=== PATIENT | female | born 2000 | race Two or more races ===

== ENCOUNTER 2023-05-03 12:39 | Outpatient (OUT) | payer BC, MEDICAID, SELFPAY ==
--- NOTE | 2023-05-03 12:42 | US_ITS ---
[address] [address] Patient Name: OMAR GRIFFITH MRN: [id number] date: 2000 Sex: F Assigned Patient Location: US Current Patient Location: US Accession/Order Number: [id number] Exam Date: 05/03/2023 12:42 Report Date: 05/03/2023 14:37 At the request of: ABRIL DE SOUZA Procedure: US OB transvaginal EXAMINATION: US OB >= 14 weeks Fetus, US OB transvaginal HISTORY: MISSED MENSES COMPARISON: No relevant comparison available. TECHNIQUE: Transabdominal sonographic examination was performed for obstetrical and evaluation. FINDINGS: Number: 1 Heart Rate: 149.0 bpm Amniotic Fluid Volume: Subjectively normal Placental Location: Posterior Cervix Length: 5 cm , closed BIOMETRY: BPD: 3.8 cm 17 weeks 5 days HC: 14.2 cm 17 weeks 4 days AC: 12.2 cm 17 weeks 6 days FL: 2.3 cm 17 weeks 0 days EFW:195.3 grams; , 7 ounces FL/AC: 19.0 FL/BPD: 60.4 HC/AC: 1.2 GESTATIONAL AGE: Age by EDC: Unknown Age by current US: 17 weeks 4 days YESSY by current US: 10/07/2023 US/US OB transvaginal IMPRESSION: Viable mercado intrauterine gestation measuring 17 weeks 4 days Closed cervix measuring 5 cm in length *Reference: AIUM Practice Guideline for the performance of Obstetric Ultrasound Examinations, January 28, 2007. Electronically authenticated by: CHRISTINE HENRIQUEZ Date: 05/03/2023 14:37
--- NOTE | 2023-05-03 13:15 | US_ITS ---
[address] [address] Patient Name: OMAR GRIFFITH MRN: [id number] date: 2000 Sex: F Assigned Patient Location: US Current Patient Location: US Accession/Order Number: [id number] Exam Date: 05/03/2023 13:00 Report Date: 05/03/2023 14:37 At the request of: ABRIL DE SOUZA Procedure: US OB >= 14 weeks Fetus EXAMINATION: US OB >= 14 weeks Fetus, US OB transvaginal HISTORY: MISSED MENSES COMPARISON: No relevant comparison available. TECHNIQUE: Transabdominal sonographic examination was performed for obstetrical and evaluation. FINDINGS: Number: 1 Heart Rate: 149.0 bpm Amniotic Fluid Volume: Subjectively normal Placental Location: Posterior Cervix Length: 5 cm , closed BIOMETRY: BPD: 3.8 cm 17 weeks 5 days HC: 14.2 cm 17 weeks 4 days AC: 12.2 cm 17 weeks 6 days FL: 2.3 cm 17 weeks 0 days EFW:195.3 grams; , 7 ounces FL/AC: 19.0 FL/BPD: 60.4 HC/AC: 1.2 GESTATIONAL AGE: Age by EDC: Unknown Age by current US: 17 weeks 4 days YESSY by current US: 10/07/2023 US/US OB >= 14 weeks Fetus IMPRESSION: Viable mercaod intrauterine gestation measuring 17 weeks 4 days Closed cervix measuring 5 cm in length *Reference: AIUM Practice Guideline for the performance of Obstetric Ultrasound Examinations, January 28, 2007. Electronically authenticated by: CHRISTINE HENRIQUEZ Date: 05/03/2023 14:37
== END 2023-05-03 12:40 | disposition home or self-care (01) ==
PROVIDERS: PCP Family Medicine; Visit Provider Obstetrics & Gynecology
DX: Z34.92 Encounter for supervision of normal pregnancy, unspecified, second trimester (principal); Z3A.17 17 weeks gestation of pregnancy; N92.6 Irregular menstruation, unspecified
CPT/HCPCS: 76815; 76817

== ENCOUNTER 2023-05-15 09:42 | Outpatient (OUT) | payer BC, MEDICAID, SELFPAY ==
--- OUTSIDE RECORDS SUMMARY | 2023-05-15 09:52 | XMS_ITS | CCD ---
Author Name Unknown Address [facility] [address] [place] [address] Organization [facility] Encounters Encounter Date Encounter Type Care Provider Facility Start: 05-03-2023 End: 05-03-2023 ambulatory Not Available Payers Date Payer Category Payer Unknown [id number] 2023 Medicaid [id number] 2000 Unknown [id number] Summary Purpose Family History No Family History Records Found Advance Directives No Advanced Directives Records Found Additional Source Comments INFORMATION SOURCE (unrecogn ized section and content) DATE CREATED AUTHOR 05/04/2023 [facility] dical Specialists EPIC FOR RECORDS PERTAINING TO PATIENTS WHO ARE OR HAVE BEEN ENROLLED IN A CHEMICAL DEPENDENCY/SUBSTANCEABUSE PROGRAM, SOME INFORMATION MAY BE OMITTED. This clinical summary was aggregated from multiple sources. Caution should be exercised in using it in the provision of clinical care. This summary normalizes information from multiple sources, and as a consequence, information in this document may materially change the coding, format and clinical context of patient data. In addition, data may be omitted in some cases. CLINICAL DECISIONS SHOULD BE BASED ON THE PRIMARY CLINICAL RECORDS. [facility]. provides no warranty or guarantee of the accuracy or completeness of information in this document.
[2023-05-15 10:41] LABS: Basophils Percent Auto 0.1 % (0.2-2.0); Eosinophils Percent Auto 0.3 % (0.9-7.0); Hematocrit 32.3 % (36.0-48.0); Hemoglobin 11.4 g/dL (12.0-16.0); Immature Granulocytes Abs Auto 0.04 10^3/uL (0.00-0.03); Immature Granulocytes Pct Auto 0.4 % (0.0-0.5); Lymphocytes Absolute Auto 1.5 10^3/uL (1.2-3.8); Lymphocytes Percent Auto 13.9 % (20.5-60.0); Mean Corpuscular HGB Conc 35.3 g/dL (29.9-35.2); Mean Corpuscular Hemoglobin 34.8 pg (26.7-34.0); Mean Corpuscular Volume 98.5 fL (81.0-99.0); Mean Platelet Volume 9.4 fL (9.5-13.5); Monocytes Absolute Auto 0.8 10^3/uL (0.3-0.8); Monocytes Percent Auto 7.8 % (1.7-12.0); Neutrophils Absolute Auto 8.2 10^3/uL (1.4-6.5); Neutrophils Percent Auto 77.5 % (43.0-75.0); Platelet Count 219 10^3/uL (150-450); Red Blood Count 3.28 10^6/uL (4.20-5.40); Red Cell Distribution Width 12.3 % (11.0-15.0); White Blood Count 10.6 10^3/uL (4.0-11.0)
[2023-05-15 11:19] LABS: Estimated Average Glucose 88 mg/dL; Glycohemoglobin A1C 4.7 % (4.5-6.2)
[2023-05-15 11:36] LABS: Thyroid Stimulating Hormone 2.462 uIU/mL (0.358-3.740)
[2023-05-16 06:10] LABS: HBsAg Screen Negative (Negative); HCV Ab Non Reactive (Non Reactive); HIV Ab/p24 Ag Screen Non Reactive (Non Reactive); Rapid Plasma Reagin, Quant Non Reactive titer (NonRea<1:1)
[2023-05-16 08:10] LABS: Rubella Antibodies, IgG 5.06 index (Immune >0.99)
[2023-05-17 01:07] LABS: AFP Value 58.4 ng/mL (.); Gest. Age on Collection Date 16.3 weeks (.); Gestat. Age Based On Ultrasound (.); Insulin Dep Diabetes No (.); OSBR Risk 1 IN 2965 (.); Results Report (.)
== END 2023-05-15 09:43 | disposition home or self-care (01) ==
PROVIDERS: PCP Family Medicine; Visit Provider Obstetrics & Gynecology
DX: Z34.92 Encounter for supervision of normal pregnancy, unspecified, second trimester (principal); N92.6 Irregular menstruation, unspecified; Z36.0 Encounter for antenatal screening for chromosomal anomalies
CPT/HCPCS: 36415; 82105; 83036; 84443; 85025; 86592; 86762; 86803; 86850; 86900; 86901; 87086; 87340; 87389

== ENCOUNTER 2023-05-28 10:03 | Outpatient (OUT) | payer BC, MEDICAID, SELFPAY ==
--- OUTSIDE RECORDS SUMMARY | 2023-05-28 10:08 | XMS_ITS | CCD ---
Author Name Unknown Address [facility] [address] [place] [address] Organization [facility] Encounters Encounter Date Encounter Type Care Provider Facility Start: 05-03-2023 End: 05-03-2023 ambulatory Not Available Payers Date Payer Category Payer Unknown [id number] 2023 Medicaid [id number] 2000 Unknown [id number] Summary Purpose Family History No Family History Records Found Advance Directives No Advanced Directives Records Found Additional Source Comments INFORMATION SOURCE (unrecogn ized section and content) DATE CREATED AUTHOR 05/04/2023 [facility] dical Specialists EPIC FOR RECORDS PERTAINING TO [...] BE BASED ON THE PRIMARY CLINICAL RECORDS. [employer]. provides no warranty or guarantee of the accuracy or completeness of information in this document.
--- NOTE | 2023-05-28 10:09 | US_ITS ---
[address] [address] Patient Name: OMAR GRIFFITH MRN: [id number] date: 2000 Sex: F Assigned Patient Location: [facility] Current Patient Location: [facility] Accession/Order Number: [id number] Exam Date: 05/28/2023 10:10 Report Date: 05/28/2023 11:48 At the request of: ABRIL DE SOUZA Procedure: US OB anatomy EXAMINATION: US OB anatomy, US OB cervical length HISTORY: ANATOMY COMPARISON: No relevant comparison available. TECHNIQUE: Transabdominal sonographic examination was performed for obstetrical and evaluation. FINDINGS: Number: 1 Heart Rate: 147.0 bpm H.B. /min Amniotic Fluid Volume: Subjectively normal Placental Location: Breech presentation, longitudinal lie Cervix Length: 4.7cm , closed Normal anatomy: Lateral ventricles, cerebellum, posterior fossa, nose, lips, orbits, four-chamber heart, RVOT, LVOT, diaphragm, stomach, kidneys, abdominal cord insertion, bladder, umbilical arteries, three-vessel cord, spine, extremities BIOMETRY: BPD: 4.6 cm 19 weeks 6 days , 8% HC: 17.9 cm 20 weeks 3 days, 12% AC: 15.2 cm 20 weeks 3 days, 21% FL: 3.4 cm 20 weeks 3 days , 20% EFW:353.1 grams; 12 ounces, 14% FL/AC: 22.0 FL/BPD: 73.1 HC/AC: 1.2 GESTATIONAL AGE: Age by EDC: 21 weeks 1 days Age by current US: 20 weeks 2 days YESSY by current US: 10/13/2023 YESSY by EDC: 10/07/2023 US/US OB anatomy IMPRESSION: Normal anatomy scan Closed cervix measuring 4.7 cm in length *Reference: AIUM Practice Guideline for the performance of Obstetric Ultrasound Examinations, January 28, 2007. Electronically authenticated by: CHRISTINE HENRIQUEZ Date: 05/28/2023 11:48
--- NOTE | 2023-05-28 10:09 | US_ITS ---
[address] [address] Patient Name: OMAR GRIFFITH MRN: [id number] date: 2000 Sex: F Assigned Patient Location: [facility] Current Patient Location: [facility] Accession/Order Number: [id number] Exam Date: 05/28/2023 10:10 Report Date: 05/28/2023 11:48 At the request of: ABRIL DE SOUZA Procedure: US OB cervical length EXAMINATION: US OB anatomy, US OB cervical length HISTORY: ANATOMY COMPARISON: No relevant comparison available. TECHNIQUE: Transabdominal sonographic examination was performed for obstetrical and evaluation. FINDINGS: Number: 1 Heart Rate: 147.0 bpm H.B. /min Amniotic Fluid Volume: Subjectively normal Placental Location: Breech presentation, longitudinal lie Cervix Length: 4.7cm , closed Normal anatomy: Lateral ventricles, cerebellum, posterior fossa, nose, lips, orbits, four-chamber heart, RVOT, LVOT, diaphragm, stomach, kidneys, abdominal cord insertion, bladder, umbilical arteries, three-vessel cord, spine, extremities BIOMETRY: BPD: 4.6 cm 19 weeks 6 days , 8% HC: 17.9 cm 20 weeks 3 days, 12% AC: 15.2 cm 20 weeks 3 days, 21% FL: 3.4 cm 20 weeks 3 days , 20% EFW:353.1 grams; 12 ounces, 14% FL/AC: 22.0 FL/BPD: 73.1 HC/AC: 1.2 GESTATIONAL AGE: Age by EDC: 21 weeks 1 days Age by current US: 20 weeks 2 days YESSY by current US: 10/13/2023 YESSY by EDC: 10/07/2023 US/US OB cervical length IMPRESSION: Normal anatomy scan Closed cervix measuring 4.7 cm in length *Reference: AIUM Practice Guideline for the performance of Obstetric Ultrasound Examinations, January 28, 2007. Electronically authenticated by: CHRISTINE HENRIQUEZ Date: 05/28/2023 11:48
== END 2023-05-28 10:04 | disposition home or self-care (01) ==
LOC: NOMS 10:05
PROVIDERS: PCP Family Medicine; Visit Provider Obstetrics & Gynecology
DX: Z01.419 Encounter for gynecological examination (general) (routine) without abnormal findings (principal); Z36.89 Encounter for other specified antenatal screening; Z3A.21 21 weeks gestation of pregnancy
CPT/HCPCS: 76805; 76817; G0145

== ENCOUNTER 2023-05-28 21:25 | Outpatient (REF) | payer BC, MEDICAID, SELFPAY ==
--- OUTSIDE RECORDS SUMMARY | 2023-05-28 21:28 | XMS_ITS | CCD ---
Author Name Unknown Address [facility] [address] [place] [address] Organization [facility] Care Team Providers Care Airset Molder Name Role Phone ABRIL DE SOUZA Attending Unavailable Encounters Encounter Date Encounter Type Care Provider Facility Start: 05-28-2023 End: 05-28-2023 ambulatory ABRIL AP Not Available Start: 05-03-2023 End: 05-03-2023 ambulatory ABRIL AP Not Available Payers Date Payer Category Payer Unknown [id number] 2023 Medicaid [id number] 2001 Unknown [id number] 2.16.84 [id number] 2001 Unknown [id number] Summary Purpose Family History No Family History Records Found Advance Directives No Advanced Directives Records Found Additional Source Comments INFORMATION SOURCE (unrecogn ized section and content) DATE CREATED AUTHOR 05/28/2023 [facility] Specialists EPIC FOR RECORDS PERTAINING TO PATIENTS [...] BE BASED ON THE PRIMARY CLINICAL RECORDS. [facility] [employer] provides no warranty or guarantee of the accuracy or completeness of information in this document.
[2023-05-31 15:09] LABS: Age Gdln ACOG Testing Note (.); IGP, rfx Aptima HPV ASCU Note (.)
== END 2023-05-28 21:26 | disposition home or self-care (01) ==
LOC: LAB 21:25
PROVIDERS: PCP Family Medicine; Visit Provider Obstetrics & Gynecology
DX: Z01.419 Encounter for gynecological examination (general) (routine) without abnormal findings (principal)
CPT/HCPCS: G0145

== ENCOUNTER 2023-06-18 11:38 | Outpatient (OUT) | payer BC, MEDICAID, SELFPAY ==
--- OUTSIDE RECORDS SUMMARY | 2023-06-18 11:42 | XMS_ITS | CCD ---
Author Name Unknown Address [facility] [address] [place] [address] Organization [facility] Care Team Providers Care River Transportation Worker Name Role Phone ARBIL DE SOUZA Attending Unavailable Encounters Encounter Date Encounter Type Care Provider Facility Start: 05-28-2023 End: 05-28-2023 ambulatory ABRIL AP Not Available Start: 05-03-2023 End: 05-03-2023 ambulatory ABRIL AP Not Available Payers Date Payer Category Payer Unknown [id number] 2023 Medicaid [id number] 2001 Unknown [id number] 2.16.84 [id number] 2001 Unknown [id number] Summary Purpose Family History No Family History Records Found Advance Directives No Advanced Directives Records Found Additional Source Comments INFORMATION SOURCE (unrecogn ized section and content) DATE CREATED AUTHOR 05/28/2023 [facility] Specialists EPIC FOR RECORDS PERTAINING TO PATIENTS [...] BE BASED ON THE PRIMARY CLINICAL RECORDS. [facility] [employer] provides no warranty or guarantee of the accuracy or completeness of information in this document.
[2023-06-18 13:16] LABS: Basophils Percent Auto 0.2 % (0.2-2.0); Eosinophils Percent Auto 0.3 % (0.9-7.0); Hematocrit 35.1 % (36.0-48.0); Hemoglobin 11.7 g/dL (12.0-16.0); Immature Granulocytes Abs Auto 0.06 10^3/uL (0.00-0.03); Immature Granulocytes Pct Auto 0.6 % (0.0-0.5); Lymphocytes Percent Auto 20.7 % (20.5-60.0); Mean Corpuscular HGB Conc 33.3 g/dL (29.9-35.2); Mean Corpuscular Hemoglobin 33.9 pg (26.7-34.0); Mean Corpuscular Volume 101.7 fL (81.0-99.0); Mean Platelet Volume 9.4 fL (9.5-13.5); Monocytes Absolute Auto 0.5 10^3/uL (0.3-0.8); Neutrophils Absolute Auto 7.2 10^3/uL (1.4-6.5); Neutrophils Percent Auto 73.2 % (43.0-75.0); Platelet Count 238 10^3/uL (150-450); Red Blood Count 3.45 10^6/uL (4.20-5.40); Red Cell Distribution Width 12.8 % (11.0-15.0); White Blood Count 9.8 10^3/uL (4.0-11.0)
[2023-06-18 13:31] LABS: Glucose 1 Hour 153 mg/dL (<130)
== END 2023-06-18 11:39 | disposition home or self-care (01) ==
LOC: LAB 11:40
PROVIDERS: PCP Family Medicine; Visit Provider Obstetrics & Gynecology
DX: Z13.1 Encounter for screening for diabetes mellitus (principal)
CPT/HCPCS: 36415; 82950; 85025

== ENCOUNTER 2023-06-29 12:18 | Outpatient (OUT) | payer BC, MEDICAID, SELFPAY ==
--- OUTSIDE RECORDS SUMMARY | 2023-06-29 12:22 | XMS_ITS | CCD ---
Author Name Unknown Address [facility] [address] [place] [address] Organization [facility] Care Team Providers Care Fiberglass Technician Name Role Phone ABRIL DE SOUZA Attending Unavailable Encounters Encounter Date Encounter Type Care Provider Facility Start: 05-28-2023 End: 05-28-2023 ambulatory ABRIL AP Not Available Start: 05-03-2023 End: 05-03-2023 ambulatory ABRIL AP Not Available Payers Date Payer Category Payer Unknown [id number] 2023 Medicaid [id number] 2001 Unknown [id number] 2.16.84 [id number] 2001 Unknown [id number] Summary Purpose Family History No Family History Records Found Advance Directives No Advanced Directives Records Found Additional Source Comments INFORMATION SOURCE (unrecogn ized section and content) DATE CREATED AUTHOR 05/28/2023 [facility] Specialists EPIC FOR RECORDS PERTAINING TO [...] BE BASED ON THE PRIMARY CLINICAL RECORDS. [facility] [employer] provides no warranty or guarantee of the accuracy or completeness of information in this document.
[2023-06-29 13:28] LABS: Glucose Fasting 71 mg/dL (<95)
[2023-06-29 13:49] LABS: Glucose 1 Hour 160 mg/dL (<180)
[2023-06-29 15:04] LABS: Glucose 2 Hour 142 mg/dL (<155)
[2023-06-29 16:07] LABS: Glucose 3 Hour 122 mg/dL (<140)
== END 2023-06-29 12:19 | disposition home or self-care (01) ==
LOC: LAB 12:18
PROVIDERS: PCP Family Medicine; Visit Provider Obstetrics & Gynecology
DX: R73.09 Other abnormal glucose (principal)
CPT/HCPCS: 36415; 82951; 82952

== ENCOUNTER 2023-08-14 00:21 | Observation (INO) | payer BC, OTHER, SELFPAY ==
--- OUTSIDE RECORDS SUMMARY | 2023-08-14 00:26 | XMS_ITS | CCD ---
Author Organization [facility] Care Team Providers Care Integrated Program Teacher Name Role Phone AP, ABRIL Attending Unavailable AP, ABRIL Attending Unavailable LIDIA, LEONIDES Attending Unavailable LIDIA, LEONIDES Attending Unavailable Encounters Encounter Date Encounter Type Care Provider Facility Start: 08-02-2023 End: 08-02-2023 ambulatory LEONIDES STACKEY Not Available Start: 07-17-2023 End: 07-17-2023 ambulatory LEONIDES LIDIA Not Available Start: 06-25-2023 End: 06-25-2023 ambulatory ABRIL AP Not Available Start: 05-28-2023 End: 05-28-2023 ambulatory ABRIL AP Not Available Start: 05-03-2023 End: 05-03-2023 ambulatory ABRIL AP Not Available Payers Date Payer Category Payer Unknown [id number] 2022 Unknown [id number] 2001 Unknown [id number] 2.16.84 [id number] 2001 Unknown [id number] 2.16.84 [id number] 2001 Unknown [id number] 2.16.84 [id number] 2001 Unknown [id number] 2.16.84 [id number] 2001 Unknown [id number] [id number] Summary Purpose Family History No Family History Records Found Advance Directives No Advanced Directives Records Found Additional Source Comments INFORMATION SOURCE (unrecogn ized section and content) DATE CREATED AUTHOR 08/03/2023 [facility] Special[facility] EPIC FOR RECORDS PERTAINING TO [...] BE BASED ON THE PRIMARY CLINICAL RECORDS. [facility]. provides no warranty or guarantee of the accuracy or completeness of information in this document.
[2023-08-14 00:42] VITALS: BP 105/67; PULSE 85
[2023-08-14 00:43] VITALS: TEMP 30.2; TEMP 30.6; TEMP 35.9
[2023-08-14 00:46] LABS: Bilirubin Urine NEGATIVE (NEGATIVE); Blood Urine LARGE (NEGATIVE); Clarity Urine CLEAR (CLEAR); Color Urine YELLOW (YELLOW); Glucose Urine UA NEGATIVE (NEGATIVE); Ketones Urine 15 mg/dL (NEGATIVE); Leukocyte Esterase Urine TRACE (NEGATIVE); Nitrite Urine NEGATIVE (NEGATIVE); Protein Urine TRACE mg/dL (NEG/TRACE); Specific Gravity Urine >=1.030 (1.005-1.025); Urobilinogen Urine 0.2 EU/dL (0.2-1.0)
[2023-08-14 00:47] LABS: Urine Microscopic Indicated YES
[2023-08-14 00:57] LABS: RBC Urine 20-50 #/HPF (0-2); WBC Urine 0-2 #/HPF (NONE SEEN)
[2023-08-14 00:58] LABS: Bacteria Urine MODERATE #/HPF (NONE SEEN); Cast Seen? NONE SEEN #/LPF (NONE SEEN); Crystals Seen? None Seen #/HPF (None Seen); Mucus Urine MODERATE (NONE SEEN); Squamous Epithelial Cell Urine FEW #/LPF (NONE/RARE); Urine Culture Indicated YES
[2023-08-14 01:45] VITALS: TEMP 36.7
[2023-08-14] MEDS: ACETAMINOPHEN 500 MG TABLET 1000 MG PO (02:15)
[2023-08-14] MEDS: 0.9 % SODIUM CHLORIDE 500 ML 1000 ML IV (02:32)
[2023-08-14] MEDS: CEFAZOLIN SODIUM/DEXTROSE,ISO 2 GM/50 ML PIGGYBACK IV (02:37)
--- NOTE | 2023-08-14 04:31 | PC.NURSE ---
IV 22G left forearm.
[2023-08-14 06:27] VITALS: BP 96/59; PULSE 93; TEMP 36.6
--- NOTE | 2023-08-14 07:00 | US_ITS ---
[address] [address] Patient Name: OMAR GRIFFITH MRN: [id number] date: 2000 Sex: F Assigned Patient Location: [facility] Current Patient Location: [facility] Accession/Order Number: [id number] Exam Date: 08/14/2023 07:25 Report Date: 08/14/2023 07:58 At the request of: ABRIL DE SOUZA Procedure: US OB placenta EXAMINATION: US OB cervical length, US OB placenta HISTORY: Vaginal Bleeding COMPARISON: 05/28/2023 FINDINGS: position: Cephalic presentation, longitudinal lie Amniotic fluid volume: Subjectively normal Placenta: Posterior fundal, grade 1. No intraplacental or retroplacental echogenic abnormality. Placental edge to internal os is not seen on the images Heart rate: 130 beats minute Cervix: 4.3 cm, closed US/US OB placenta IMPRESSION: Normal placenta Closed cervix measuring 4.3 cm in length Electronically authenticated by: CHRISTINE HENRIQUEZ Date: 08/14/2023 07:58
--- NOTE | 2023-08-14 07:00 | US_ITS ---
[address] [address] Patient Name: OMAR GRIFFITH MRN: [id number] date: 2000 Sex: F Assigned Patient Location: [facility] Current Patient Location: [facility] Accession/Order Number: [id number] Exam Date: 08/14/2023 07:25 Report Date: 08/14/2023 07:58 At the request of: ABRIL DE SOUZA Procedure: US OB cervical length EXAMINATION: US OB cervical length, US OB placenta HISTORY: Vaginal Bleeding COMPARISON: 05/28/2023 FINDINGS: position: Cephalic presentation, longitudinal lie Amniotic fluid volume: Subjectively normal Placenta: Posterior fundal, grade 1. No intraplacental or retroplacental echogenic abnormality. Placental edge to internal os is not seen on the images Heart rate: 130 beats minute Cervix: 4.3 cm, closed US/US OB cervical length IMPRESSION: Normal placenta Closed cervix measuring 4.3 cm in length Electronically authenticated by: CHRISTINE HENRIQUEZ Date: 08/14/2023 07:58
--- NOTE | 2023-08-14 07:33 | W.PC.ACHO ---
Registration Status: ADM JALEN Primary Language: Preferred Language: Report given Beatris BRIDGES at 0715. Active Medications Generic Name Dose Route Start Last Admin Trade Name Freq PRN Reason Stop Dose Admin Acetaminophen 1,000 mg 08/14/23 01:06 08/14/23 02:15 Acetaminophen 500 Mg Tablet PO 1,000 mg Q4H PRN Administration Pain Sodium Chloride 1,000 mls @ 125 mls/hr 08/14/23 01:30 Sodium Chloride 0.9% 1,000 Ml IV .Q8H MARIE Cefazolin Sodium/Dextrose 1 gm in 50 mls @ 100 mls/hr 08/14/23 09:15 Ancef IV Q8H MARIE IV Insertion/Site Date of IV Line Insertion [ 08/14/23 Short PIV (<1.75 in) 22g left Hand] Date of IV Line Insertion [ 08/14/23 Short PIV (<1.75 in) 20g left Antecubital] IV Insertion Time [Short PIV ( 03:20 <1.75 in) 22g left Hand] IV Insertion Time [Short PIV ( 02:30 <1.75 in) 20g left Antecubital ]
== END 2023-08-14 08:30 | disposition home or self-care (01) ==
PROVIDERS: Admitting Provider Obstetrics & Gynecology; PCP Family Medicine; Visit Provider Obstetrics & Gynecology
DX: O46.93 Antepartum hemorrhage, unspecified, third trimester (principal); Z3A.32 32 weeks gestation of pregnancy
CPT/HCPCS: 59025; 76815; 76817; 81001; 87086; 96365; G0378; G0379

== ENCOUNTER 2023-08-30 09:58 | Outpatient (OUT) | payer BC, MEDICAID, OTHER, SELFPAY ==
--- NOTE | 2023-08-30 10:05 | US_ITS ---
[address] [address] Patient Name: OMAR GRIFFITH MRN: [id number] date: 2000 Sex: F Assigned Patient Location: [facility] Current Patient Location: [facility] Accession/Order Number: [id number] Exam Date: 08/30/2023 10:05 Report Date: 08/30/2023 10:55 At the request of: ABRIL DE SOUZA Procedure: US OB growth EXAMINATION: US OB growth HISTORY: SIZE INCONSISTENT WITH DATES COMPARISON: No relevant comparison available. FINDINGS: Heart Rate: 174.0 bpm Amniotic Fluid Volume: 13.0 cm Number: 1.0 Position: Cephalic presentation, longitudinal lie Maximum Vertical Pocket: 5.0 cm cm 1.9 cm cm 4.9 cm cm 1.2 cm cm BIOMETRY: BPD: 8.7 cm cm; 35 weeks 1 days; 65% HC: 31.5 cmcm; 35 weeks 2 days , 33% AC: 31.6 cm cm; 35 weeks 4 days, 81% FL: 6.4 cm cm; 33 weeks 0 days; 9.2 % % EFW: 2520.5 grams, 5 lbs. 9 oz., 52% FL/AC: 20.2 FL/BPD: 73.5 HC/AC: 1.0 GESTATIONAL AGE: Age by EDC: 34 weeks 4 days YESSY by EDC: 10/07/2023 Age by US: 34 weeks 5 days YESSY by US: 10/06/2023 US/US OB growth IMPRESSION: Normal interval growth Electronically authenticated by: CHRISTINE HENRIQUEZ Date: 08/30/2023 10:55
== END 2023-08-30 09:59 | disposition home or self-care (01) ==
PROVIDERS: PCP Family Medicine; Visit Provider Obstetrics & Gynecology
DX: O26.843 Uterine size-date discrepancy, third trimester (principal); Z3A.34 34 weeks gestation of pregnancy
CPT/HCPCS: 76816

== ENCOUNTER 2023-09-13 19:21 | Outpatient (REF) | payer MEDICAID, SELFPAY ==
--- OUTSIDE RECORDS SUMMARY | 2023-09-13 19:41 | XMS_ITS | CCD ---
Author Organization [facility] Care Team Providers Care Insurance Verification Clerk Name Role Phone AP, ABRIL Attending Unavailable AP, ABRIL Attending Unavailable LIDIA, LEONIDES Attending Unavailable LIDIA, LEONIDES Attending Unavailable AP, ABRIL Attending Unavailable LIDIA, LEONIDES Attending Unavailable AP, ABRIL Attending Unavailable Encounters Encounter Date Encounter Type Care Provider Facility Start: 09-06-2023 End: 09-06-2023 ambulatory ABRIL AP Not Available Start: 08-30-2023 End: 08-30-2023 ambulatory LEONIDES LDIIA Not Available Start: 08-16-2023 End: 08-16-2023 ambulatory ABRIL AP Not Available Start: 08-02-2023 End: 08-02-2023 ambulatory LEONIDES LIDIA Not Available Start: 07-17-2023 End: 07-17-2023 ambulatory LEONIDES LIDIA Not Available Start: 06-25-2023 End: 06-25-2023 ambulatory ABRIL AP Not Available Start: 05-28-2023 End: 05-28-2023 ambulatory ABRIL AP Not Available Start: 05-03-2023 End: 05-03-2023 ambulatory ABRIL AP Not Available Payers Date Payer Category Payer Unknown [id number] 2022 Medicaid [id number] 2001 Unknown [id number] 2.16.84 [id number] 2001 Unknown [id number] 2.16.84 [id number] 2001 Unknown [id number] 2.16.84 [id number] 2001 Unknown [id number] 2.16.84 [id number] 2001 Unknown [id number] 2.16.84 [id number] 2001 Unknown [id number] 2.16.84 0.1.607531.3.579.2.1259 2001 Unknown [id number] 2.16.84 [id number] 2001 Unknown [id number] 2.16.840 .[id number] Summary Purpose Family History No Family History Records Found Advance Directives No Advanced Directives Records Found Additional Source Comments INFORMATION SOURCE (unrecogn ized section and content) DATE CREATED AUTHOR 09/08/2023 [facility] Specialists EPIC FOR RECORDS PERTAINING [...] BE BASED ON THE PRIMARY CLINICAL RECORDS. [facility] [employer] [facility]. provides no warranty or guarantee of the accuracy or completeness of information in this document.
== END 2023-09-13 19:22 | disposition home or self-care (01) ==
LOC: LAB 19:21
PROVIDERS: PCP Family Medicine; Visit Provider Obstetrics & Gynecology
DX: Z34.93 Encounter for supervision of normal pregnancy, unspecified, third trimester (principal)
CPT/HCPCS: 87081

== ENCOUNTER 2023-09-26 14:10 | Outpatient (OUT) | payer MEDICAID, SELFPAY ==
--- NOTE | 2023-09-26 14:12 | US_ITS ---
The [address] [address] Patient Name: OMAR GRIFFITH MRN: [id number] date: 2000 Sex: F Assigned [facility] Accession/Order Number: [id number] Exam Date: 09/26/2023 14:13 Report Date: 09/26/2023 14:51 At the request of: LEONIDES MURILLO Procedure: US OB growth EXAMINATION: US OB growth HISTORY: SIZE INCONSISTENT WITH DATES COMPARISON: No relevant comparison available. FINDINGS: Heart Rate: 146.0 bpm Amniotic Fluid Volume: 19.5 cm Number: 1.0 Position: Cephalic presentation, longitudinal lie Maximum Vertical Pocket: 1.8 cm cm 5.5 cm cm 5.3 cm cm 6.9 cm cm BIOMETRY: BPD: 9.3 cm cm; 38 weeks 0 days; 65% HC: 33.6 cmcm; 38 weeks 4 days , 35% AC: 35.8 cm cm; 39 weeks 5 days, 93% FL: 7.3 cm cm; 37 weeks 1 days; 23.4 % % EFW: 3604.4 grams, 7 lbs. 15 oz., 75% FL/AC: 20.3 FL/BPD: 77.8 HC/AC: 0.9 GESTATIONAL AGE: Age by EDC: 38 weeks 3 days YESSY by EDC: 10/07/2023 Age by US: 38 weeks 3 days YESSY by US: 10/07/2023 US/US OB growth IMPRESSION: Normal interval growth. Electronically authenticated by: CHRISTINE HENRIQUEZ Date: 09/26/2023 14:51
--- OUTSIDE RECORDS SUMMARY | 2023-09-26 14:23 | XMS_ITS | CCD ---
Author Organization [facility] Care Team Providers Care Packaging Line Attendant Name Role Phone AP, ABRIL Attending Unavailable AP, ABRIL Attending Unavailable LIDIA, LEONIDES Attending Unavailable LIDIA, LEONIDES Attending Unavailable AP, ABRIL Attending Unavailable LIDIA, LEONIDES Attending Unavailable AP, ABRIL Attending Unavailable AP, ABRIL Attending Unavailable LIDIA, LEONIDES Attending Unavailable Encounters Encounter Date Encounter Type Care Provider Facility Start: 09-20-2023 End: 09-20-2023 ambulatory LEONIDES LIDIA Not Available Start: 09-13-2023 End: 09-13-2023 ambulatory ABRIL AP Not Available Start: 09-06-2023 End: 09-06-2023 ambulatory ABRIL AP Not Available Start: 08-30-2023 End: 08-30-2023 ambulatory LEONIDES LIDIA Not Available Start: 08-16-2023 End: 08-16-2023 ambulatory ABRIL AP Not Available Start: 08-02-2023 End: 08-02-2023 ambulatory LEONIDES LIDIA Not Available Start: 07-17-2023 End: 07-17-2023 ambulatory LEONIDES LIDIA Not Available Start: 06-25-2023 End: 06-25-2023 ambulatory ABRIL AP Not Available Start: 05-28-2023 End: 05-28-2023 ambulatory ABRIL AP Not Available Start: 05-03-2023 End: 05-03-2023 ambulatory ABRIL AP Not Available Payers Date Payer Category Payer Unknown [id number] 2022 Medicaid [id number] 2001 Unknown [id number] 2.16.84 0.1.237120.3.579.2.9 2001 Unknown [id number] 2.16.84 0.1.060294.3.579.2.1258 2001 Unknown [id number] 2.16.84 0.1.143991.3.579.2.1258 2001 Unknown [id number] 2.16.84 0.1.636994.3.579.2.1258 2001 Unknown [id number] 2.16.84 0.1.738706.3.579.2.1258 2001 Unknown [id number] 2.16.84 0.1.691243.3.579.2.1258 2001 Unknown [id number] 2.16.84 0.1.749611.3.579.2.1258 2001 Unknown [id number] 2.16.84 0.1.062623.3.579.2.1258 2001 Unknown [id number] 2.16.84 0.1.762178.3.579.2.1258 2001 Unknown [id number] 2.16.840 .[id number] Summary Purpose Family History No Family History Records Found Advance Directives No Advanced Directives Records Found Additional Source Comments INFORMATION SOURCE (unrecogn ized section and content) DATE CREATED AUTHOR 09/22/2023 [facility] Specialists EPIC FOR RECORDS PERTAINING TO [...] BE BASED ON THE PRIMARY CLINICAL RECORDS. [facility] [employer] provides no warranty or guarantee of the accuracy or completeness of information in this document.
== END 2023-09-26 14:11 | disposition home or self-care (01) ==
LOC: NOMS 14:10
PROVIDERS: PCP Family Medicine; Visit Provider Physician Assistant
DX: O26.843 Uterine size-date discrepancy, third trimester (principal); Z3A.38 38 weeks gestation of pregnancy
CPT/HCPCS: 76816

== ENCOUNTER 2023-09-30 00:05 | Inpatient (IN) | payer MEDICAID, SELFPAY ==
--- OUTSIDE RECORDS SUMMARY | 2023-09-29 23:58 | XMS_ITS | CCD ---
Author Organization [facility] Care Team Providers Care Management Consulting Name Role Phone AP, ABRIL Attending Unavailable AP, ABRIL Attending Unavailable LIDIA, LEONIDES Attending Unavailable LIDIA, LEONIDES Attending Unavailable AP, ABRIL Attending Unavailable LIDIA, LEONIDES Attending Unavailable AP, ABRIL Attending Unavailable AP, ABRIL Attending Unavailable LIDIA, LEONIDES Attending Unavailable AP, ABRIL Attending Unavailable Encounters Encounter Date Encounter Type Care Provider Facility Start: 09-26-2023 End: 09-26-2023 ambulatory ABRIL AP Not Available Start: 09-20-2023 End: 09-20-2023 ambulatory LEONIDES LIDIA [...] Available Payers Date Payer Category Payer Unknown [id number] 2022 Medicaid [id number] 2001 Unknown [id number] 2.16.84 [id number] 2001 Unknown [id number] 2.16.84 [id number] 2001 Unknown [id number] 2.16.84 [id number] 2001 Unknown [id number] 2.16.84 [id number] 2001 Unknown [id number] 2.16.84 0.1.189942.3.579.2.1258 2001 Unknown [id number] 2.16.84 0.1.721226.3.579.2.1258 2001 Unknown [id number] 2.16.84 0.1.432578.3.579.2.1258 2001 Unknown [id number] 2.16.84 0.1.404645.3.579.2.1258 2001 Unknown [id number] 2.16.84 0.1.278915.3.579.2.1258 2001 Unknown [id number] 2.16.84 0.1.601332.3.579.2.1258 2001 Unknown [id number] 2.16.840 .[id number] Summary Purpose Family History No Family History Records Found Advance Directives No Advanced Directives Records Found Additional Source Comments INFORMATION SOURCE (unrecogn ized section and content) DATE CREATED AUTHOR 09/27/2023 [facility] FOR RECORDS PERTAINING TO PATIENTS WHO ARE [...] BE BASED ON THE PRIMARY CLINICAL RECORDS. [facility] [employer] provides no warranty or guarantee of the accuracy or completeness of information in this document.
[2023-09-30] VITALS (61 sets, daily range): BP systolic 93–178; BP diastolic 52–104; PULSE 75–139; TEMP 35.5–37.5
[2023-09-30] MEDS: 0.9 % SODIUM CHLORIDE 1,000 ML 125 ML IV ×2 (00:35→08:25)
[2023-09-30 00:36] LABS: Hematocrit 34.8 % (36.0-48.0); Hemoglobin 11.2 g/dL (12.0-16.0); Mean Corpuscular HGB Conc 32.2 g/dL (29.9-35.2); Mean Corpuscular Hemoglobin 29.9 pg (26.7-34.0); Mean Corpuscular Volume 92.8 fL (81.0-99.0); Mean Platelet Volume 10.7 fL (9.5-13.5); Platelet Count 236 10^3/uL (150-450); Red Blood Count 3.75 10^6/uL (4.20-5.40); Red Cell Distribution Width 14.2 % (11.0-15.0); White Blood Count 10.1 10^3/uL (4.0-11.0)
[2023-09-30 01:00] LABS: Amphetamine Screen Urine NEGATIVE (NEGATIVE); Barbiturates Screen Urine NEGATIVE (NEGATIVE); Benzodiazepines Screen Urine NEGATIVE (NEGATIVE); Buprenorphine Screen Urine NEGATIVE (NEGATIVE); Cannabinoid Screen Urine NEGATIVE (NEGATIVE); Cocaine Screen Urine NEGATIVE (NEGATIVE); Methadone Screen Urine NEGATIVE (NEGATIVE); Methamphetamines Screen Urine NEGATIVE (NEGATIVE); Opiate Screen Urine NEGATIVE (NEGATIVE); Oxycodone Screen Urine NEGATIVE (NEGATIVE); Phencyclidine Screen Urine NEGATIVE (NEGATIVE); Tricyclic Antidepressant Urine NEGATIVE (NEGATIVE)
[2023-09-30] MEDS: OXYTOCIN/0.9 % SODIUM CHLORIDE 10 UNITS/500 ML PLAST..BAG 6 UNIT IV (01:30)
[2023-09-30] MEDS: 0.9 % SODIUM CHLORIDE 1,000 ML 1000 ML IV (07:02)
[2023-09-30] MEDS: ROPIVACAINE HCL/PF 400 MG/200 ML PREMIX 6 MG EPIDURAL (08:20)
[2023-09-30] MEDS: FENTANYL CITRATE/PF 100 MCG/2 ML VIAL EPIDURAL (08:20)
[2023-09-30] MEDS: LIDOCAINE HCL 1% 200 MG/20 ML MDV INJ (14:06)
[2023-09-30] MEDS: OXYTOCIN 10 UNIT/ML VIAL IM (14:16)
--- NOTE | 2023-09-30 14:24 | PM.OBPRCVD ---
Procedure Intrapartal events: None Induction method: per pitocin protocol Delivery augmentation: rupture of membranes and pitocin Delivery monitor: external FHT and external uterine Route of delivery: Episiotomy Description: midline L&D Laceration Description: periurethral - 2nd degree Delivery repair: Vicryl Estimated blood loss (mL): 450 Anesthesia type: Epidural Disposition: floor Infant Delivery date: 09/30/23 Gender: female presentation: vertex Placental delivery description: Spontaneous cord description: 3 Vessels
[2023-09-30] MEDS: OXYTOCIN/0.9 % SODIUM CHLORIDE 20 UNITS/1,000 ML PLAST..BAG 125 UNIT IV (14:34)
[2023-09-30] MEDS: IBUPROFEN 600 MG TABLET PO ×2 (15:16→21:12)
[2023-09-30] MEDS: ACETAMINOPHEN 325 MG TABLET 650 MG PO (15:17)
[2023-09-30] MEDS: GLYCERIN/WITCH HAZEL PADS 1 PAD TOPICAL (15:17)
[2023-09-30] MEDS: BENZOCAINE/MENTHOL 85 GRAM SPRAY BOTTLE 1 APPLIC TOPICAL (15:17)
[2023-10-01 00:22] VITALS: BP 127/83; PULSE 100; TEMP 36.7
[2023-10-01] MEDS: ACETAMINOPHEN 325 MG TABLET 650 MG PO ×2 (01:58→09:43)
[2023-10-01] MEDS: IBUPROFEN 600 MG TABLET PO ×3 (04:12→20:34)
--- NOTE | 2023-10-01 07:52 | PM.OBPN ---
OB - PN: Subj Subjective Patient comments: no complaints and pain well controlled [place] status: doing well Exam Constitutional Vital Signs, click to edit/add: Last Vital Signs Temp 98.1 F 10/01/23 00:22 Pulse 100 H 10/01/23 00:22 Resp 16 10/01/23 00:25 BP 127/83 10/01/23 00:22 O2 Del Method Room Air 10/01/23 00:25 Documenting provider has reviewed patient's vital signs: yes Common normals: no apparent distress Respiratory Common normals: clear to auscultation bilaterally Cardio Common normals: regular rate and regular rhythm GI Common normals: Normal to inspection, nondistended, normoactive bowel sounds present Extremity Common normals: no clubbing, cyanosis or edema and no calf tenderness OB - PN: A/P Plan - Vaginal Delivery day: 1 Plan: routine care and discharge home Time Spent with Patient Time: Total time spent is greater than 50% in coordination of care (as documented) at patient's floor/unit and/or counseling patient: Total time spent with greater than 50% in coordination of care (as documented) at patient's floor/unit and/or counseling patient: less than 15 minutes
[2023-10-01 09:38] VITALS: BP 126/73; PULSE 110; TEMP 36.2
[2023-10-01 09:41] LABS: Basophils Percent Auto 0.1 % (0.2-2.0); Eosinophils Percent Auto 0.2 % (0.9-7.0); Hemoglobin 7.4 g/dL (12.0-16.0); Immature Granulocytes Abs Auto 0.13 10^3/uL (0.00-0.03); Lymphocytes Absolute Auto 2.8 10^3/uL (1.2-3.8); Lymphocytes Percent Auto 21.2 % (20.5-60.0); Mean Corpuscular HGB Conc 31.8 g/dL (29.9-35.2); Mean Corpuscular Hemoglobin 29.5 pg (26.7-34.0); Mean Corpuscular Volume 92.8 fL (81.0-99.0); Monocytes Absolute Auto 0.9 10^3/uL (0.3-0.8); Monocytes Percent Auto 6.7 % (1.7-12.0); Neutrophils Absolute Auto 9.4 10^3/uL (1.4-6.5); Neutrophils Percent Auto 70.8 % (43.0-75.0); Platelet Count 162 10^3/uL (150-450); Red Blood Count 2.51 10^6/uL (4.20-5.40); Red Cell Distribution Width 14.5 % (11.0-15.0); White Blood Count 13.3 10^3/uL (4.0-11.0)
[2023-10-01] MEDS: DOCUSATE SODIUM 100 MG CAPSULE PO (09:43)
[2023-10-01 10:09] LABS: Hematocrit 23.3 % (36.0-48.0)
[2023-10-01 16:46] VITALS: TEMP 36.6
[2023-10-01 16:48] VITALS: BP 118/69; PULSE 110
[2023-10-01 23:45] VITALS: TEMP 35.9
[2023-10-01 23:46] VITALS: BP 117/75; PULSE 112
[2023-10-02] MEDS: IBUPROFEN 600 MG TABLET PO ×2 (02:21→08:39)
--- NOTE | 2023-10-02 06:52 | PM.OBPN ---
OB - PN: Subj Subjective Patient comments: no complaints and pain well controlled [place] status: doing well Exam Constitutional Vital Signs, click to edit/add: Last Vital Signs Temp 96.6 F L 10/01/23 23:45 Pulse 112 H 10/01/23 23:46 Resp 18 10/01/23 16:46 BP 117/75 10/01/23 23:46 O2 Del Method Room Air 10/01/23 09:35 Documenting provider has reviewed patient's vital signs: yes Common normals: no apparent distress Respiratory Common normals: clear to auscultation bilaterally Cardio Common normals: regular rate and regular rhythm GI Common normals: Normal to inspection, nondistended, normoactive bowel sounds present Extremity Common normals: no clubbing, cyanosis or edema and no calf tenderness Results Labs Labs: Short CBC 10/01/23 Range/Units 09:08 WBC 13.3 H (4.0-11.0) 10^3/uL Hgb 7.4 L (12.0-16.0) g/dL Hct 23.3 L* (36.0-48.0) % Plt Count 162 (150-450) 10^3/uL OB - PN: A/P Plan - Vaginal Delivery day: 2 Plan: routine care, discharge home and follow up 6 weeks Time Spent with Patient Time: Total time spent is greater than 50% in coordination of care (as documented) at patient's floor/unit and/or counseling patient: Total time spent with greater than 50% in coordination of care (as documented) at patient's floor/unit and/or counseling patient: less than 15 minutes
[2023-10-02] MEDS: DOCUSATE SODIUM 100 MG CAPSULE PO (08:39)
[2023-10-02] MEDS: ACETAMINOPHEN 325 MG TABLET 650 MG PO (08:39)
[2023-10-02 08:51] VITALS: BP 120/83; PULSE 84; TEMP 36.8; O2SAT 98
--- NOTE | 2023-10-03 09:10 | SWNOTE1 ---
Pt was discharged on 10/02/23, SW did not see pt prior to being discharged. SW had consult for possible bonding issues with baby. SW to speak with nursing and to call pt to check and see how she is doing at home.
--- NOTE | 2023-10-03 12:19 | SWNOTE1 ---
SW called and left message for pt.
--- NOTE | 2023-10-03 12:26 | SWNOTE1 ---
SW received call back from pt. Pt voiced she is doing well and so is baby. She stated once she got home and settled in she was feeling better about everything. Pt stated she just is an emotional person anyway and was feeling stressed and overwhelmed. Pt does live at home with her mother, her sister, and her sister's baby. She voiced her mother and sister have been great support. She stated they wake up with her in middle of night and assist and let her know if she is doing anything wrong or to try something different for baby. She also stated watching the videos at the hospital before she was discharged helped as well. Pt does have everythign she needs for baby. She also goes to counseling and her counselor is so they do connect in regards to this. 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 Pt stated her mother and sister have been there and allowed her to take breaks if she needs to and have been great supporters. SW advised pt to call to hospital at anytime with any questions. Pt voiced understanding and had no further questions/concerns.
== END 2023-10-02 14:10 | disposition home or self-care (01) | DRG 560 ==
PROVIDERS: Admitting Provider Obstetrics & Gynecology; PCP Family Medicine; Visit Provider Obstetrics & Gynecology
DX: O70.1 Second degree perineal laceration during delivery (principal); O26.843 Uterine size-date discrepancy, third trimester; Z3A.39 39 weeks gestation of pregnancy; Z37.0 Single live birth
CPT/HCPCS: 36415; 51702; 59050; 59410; 76816; 80307; 85025; 85027; 86850; 86900; 86901; 96372; 96374; 96376

== ENCOUNTER 2024-06-09 21:57 | Outpatient (REF) | payer MEDICAID, SELFPAY ==
--- OUTSIDE RECORDS SUMMARY | 2024-06-09 22:00 | XMS_ITS | CCD ---
Author Organization [facility] Care Team Providers Care Building Cleaning Supervisor Name Role Phone Melia Davis MD Primary Care Provider MELIA DAVIS Attending Unavailable AP, ABRIL Attending Unavailable LIDIA, LEONIDES Attending Unavailable LIDIA, LEONIDES Attending Unavailable AP, ABRIL Attending Unavailable LIDIA, LEONIDES Attending Unavailable AP, ABRIL Attending Unavailable AP, ABRIL Attending Unavailable LIDIA, LEONIDES Attending Unavailable AP, ABRIL Attending Unavailable AP, ABRIL Attending Unavailable MELIA DAVIS Attending Unavailable Medications Current Medications Medication Drug Class(es) Dates Sig (Normalized) Sig (Original) escitalopram 10 mg oral tablet (7 sources) Serotonin Reuptake Inhibitor Start: 06-03-2024 End: 09-01-2024 take 1 tablet by mouth once daily escitalopram (Lexapro) 10 MG tablet Indications: Anxiety Take 1 tablet (10 mg) by mouth Daily 30 tablet 2 06/03/2024 09/01/2024 Active Start: 05-05-2024 End: 11-01-2024 take 1 tablet by mouth once daily escitalopram (Lexapro) 5 MG tablet Indications: Anxiety Take 1 tablet (5 mg) by mouth Daily 30 tablet 2 05/05/2024 06/03/2024 Discontinued ethinyl estradiol 0.02 mg / levonorgestrel 0.1 mg oral tablet (6 sources) Progestin, Estrogen, Progestin-containing Intrauterine Device Start: 11-20-2023 take 1 tablet by mouth once daily Aviane 0.1-20 MG-MCG tablet Indications: Family planning TAKE 1 TABLET BY MOUTH ONCE DAILY FOR 28 DAYS 28 tablet 11 11/20/2023 Active Problems Problem Classification Problem Date Documented Da te Episodic/Chronic Anxiety disorders (4 sources) Anxiety; Translations: [Anxiety disorder, unspecified] 05-05-2024 Chronic Blindness and vision defects (5 sources) Reduced visual acuity; Translations: [Unspecified visual loss] Onset: 05-05-2024 05-05-2024 Chronic Menstrual disorders (7 sources) Irregular periods; Translations: [Irregular menstruation, unspecified] Onset: 05-05-2024 05-05-2024 Chronic Vital Signs Date Time Vital Sign Value Performing Clinician Kishori sukhdev 06-03-2024 15:55-0500 Body height 153.7 cm Melia Davis MD Work Phone: [facility] 06-03-2024 15:55-0500 Body mass index (BMI) [Ratio] 25.16 kg/m2 Melia Davis MD Work Phone: [facility] 06-03-2024 15:55-0500 Body weight 59.42 kg Melia Davis MD Work Phone: [facility] 06-03-2024 15:55-0500 Diastolic blood pressure 68 mm[Hg] Melia Davis MD Work Phone: [facility] 06-03-2024 15:55-0500 Heart rate 77 /min Melia Davis MD Work Phone: [facility] 06-03-2024 15:55-0500 Respiratory rate 18 /min Melia Davis MD Work Phone: [facility] 06-03-2024 15:55-0500 SaO2% (BldA) [Mass fraction] 99 % Melia Davis MD Work Phone: [facility] 06-03-2024 15:55-0500 Systolic blood pressure 112 mm[Hg] Melia Davis MD Work Phone: [facility] 05-05-2024 15:54-0500 Body height 153.7 cm Melia Davis MD Work Phone: [facility] 05-05-2024 15:54-0500 Body mass index (BMI) [Ratio] 26.55 kg/m2 Melia Davis MD Work Phone: [facility] 05-05-2024 15:54-0500 Body weight 62.69 kg Melia Davis MD Work Phone: [facility] 05-05-2024 15:54-0500 Diastolic blood pressure 76 mm[Hg] Melia Davis MD Work Phone: [facility] 05-05-2024 15:54-0500 Heart rate 89 /min Melia Davis MD Work Phone: [facility] 05-05-2024 15:54-0500 Respiratory rate 18 /min Melia Davis MD Work Phone: [facility] 05-05-2024 15:54-0500 SaO2% (BldA) [Mass fraction] 100 % Melia Davis MD Work Phone: [facility] 05-05-2024 15:54-0500 Systolic blood pressure 122 mm[Hg] Melia Davis MD Work Phone: [facility] Encounters Encounter Date Encounter Type Care Provider Facility Start: 06-03-2024 End: 06-03-2024 Office outpatient visit 15 minutes Melia Davis MD Work Phone: [facility] Comment on above: Anxiety (Primary Dx) Start: 06-03-2024 End: 06-03-2024 ambulatory MELIA DAVIS Not Available Start: 06-03-2024 End: 06-03-2024 Bamboo flowsheet Melia Davis MD Work Phone: [facility] Start: 06-03-2024 End: 06-03-2024 Bamboo flowsheet Melia Davis MD Work Phone: [facility] Start: 05-05-2024 End: 05-05-2024 Patient encounter status Melia Davis MD Work Phone: [facility] Start: 05-05-2024 End: 05-05-2024 Periodic preventive med est patient 18-39 yrs Melia Davis MD Work Phone: [facility] Comment on above: Irregular menses (Pr imary Dx); Routine general medical examination at a health care facility; Anxiety Start: 05-05-2024 End: 05-05-2024 ambulatory MELIA DAVIS Not Available Start: 05-05-2024 End: 05-05-2024 Bamboo flowsheet Melia Davis MD Work Phone: [facility] Start: 05-05-2024 End: 05-05-2024 Bamboo flowsheet Melia Davis MD Work Phone: [facility] Start: 11-15-2023 End: 11-15-2023 ambulatory ABRIL AP Not Available Start: 09-26-2023 End: 09-26-2023 ambulatory ABRIL AP [...] End: 06-25-2023 ambulatory ABRIL AP Not Available Plan of Treatment Date Care Activity Detail Author Start: 10-27-2024 Influenza vaccination Influenza Vacc ine (#1) [facility] Comment on above: Postponed from 12/29 (Supply/Drug Shortage) Start: 09-01-2024 End: 09-01-2024 Patient encounter procedure 09/01/2024 4:20 PM EDT Office Visit [facility] [address] [place] [id number] Melia Davis MD [address] [place] [address] [facility] Start: 06-09-2024 End: 06-09-2024 Patient encounter procedure [facility] Start: 06-03-2024 End: 06-03-2024 Patient encounter procedure [facility] Comment on above: Arrived Start: 05-05-2024 End: 05-05-2024 Patient encounter procedure 05/05/2024 4:00 PM EST Office Visit [facility] [address] [place] [id number] Melia Davis MD [address] [place] [address] Arrived [facility] Comment on above: Arrived Start: 12-30-2023 Influenza vaccination Influenza Vacc ine (#1) [facility] Immunizations Immunization Date Immunization Notes Care Provider Fa cility 11-28-2018 human papilloma viru s vaccine, quadrivalent Melia aDvis MD Work Phone: [facility] 11-28-2018 meningococcal polysaccharide (groups A, C, Y and W-135) diphtheria toxoid conjugate vaccine (MCV4P) Melia Davis MD Work Phone: [facility] 12-03-2017 human papilloma viru s vaccine, quadrivalent Melia Davis MD Work Phone: [facility] 12-04-2016 human papilloma viru s vaccine, quadrivalent Melia Davis MD Work Phone: [facility] 08-08-2013 tetanus toxoid, redu luz elena diphtheria toxoid, and acellular pertussis vaccine, adsorbed Melia Davis MD Work Phone: [facility] 09-28-2006 diphtheria, tetanus toxoids and acellular pertussis vaccine, unspecified formulation Melia Davis MD Work Phone: [facility] 09-28-2006 measles, mumps, rube lla, and varicella virus vaccine Melia Davis MD Work Phone: [facility] 09-28-2006 pneumococcal conjuga te vaccine, 7 valent Melia Davis MD Work Phone: [facility] 09-28-2006 poliovirus vaccine, inactivated Melia Davis MD Work Phone: [facility] 04-10-2005 influenza, seasonal, injectable Melia Davis MD Work Phone: [facility] 04-10-2005 influenza virus vacc ine, unspecified formulation Melia Davis MD Work Phone: [facility] 07-31-2003 diphtheria, tetanus toxoids and acellular pertussis vaccine, unspecified formulation Melia Davis MD Work Phone: [facility] 07-31-2003 haemophilus influenz ae type b vaccine, conjugate unspecified formulation Melia Davis MD Work Phone: [facility] 07-31-2003 pneumococcal conjuga te vaccine, 7 valent Melia Davis MD Work Phone: [facility] 10-22-2002 haemophilus influenz ae type b conjugate and Hepatitis B vaccine Melia Davis MD Work Phone: [facility] 10-22-2002 measles, mumps and r ubella virus vaccine Melia Davis MD Work Phone: [facility] 10-22-2002 pneumococcal conjuga te vaccine, 7 valent Melia Davis MD Work Phone: [facility] 10-22-2002 poliovirus vaccine, inactivated Melia Davis MD Work Phone: [facility] 10-22-2002 varicella virus vaccine Melia Davis MD Work Phone: [facility] 06-23-2002 diphtheria, tetanus toxoids and acellular pertussis vaccine, unspecified formulation Melia Davis MD Work Phone: [facility] 02-27-2002 diphtheria, tetanus toxoids and acellular pertussis vaccine, unspecified formulation Melia Davis MD Work Phone: [facility] 02-27-2002 poliovirus vaccine, inactivated Melia Davis MD Work Phone: [facility] 2001 diphtheria, tetanus toxoids and acellular pertussis vaccine, unspecified formulation Melia Davis MD Work Phone: [facility] 2001 haemophilus influenz ae type b conjugate and Hepatitis B vaccine Melia Davis MD Work Phone: [facility] 2001 poliovirus vaccine, inactivated Melia Davis MD Work Phone: [facility] 2001 hepatitis B vaccine, pediatric or pediatric/adolescent dosage Melia Davis MD Work Phone: [facility] Payers Date Payer Category Payer Medicaid [facility] [id number] 2023 Unknown [id number] 2022 Medicaid [id number] 2001 Unknown [id number] 2001 Unknown [id number] 2001 Unknown [id number] 2001 Unknown [id number] 2001 Unknown [id number] 2001 Unknown [id number] 2001 Unknown [id number] 2001 Unknown [id number] 2001 Unknown [id number] 2001 Unknown [id number] 2001 Unknown [id number] 2001 Unknown [id number] Social History Date Type Detail Facility Start: 11-15-2023 Tobacco smoking status NHIS Never sm oked tobacco [facility] Start: 11-15-2023 Tobacco use and exposure Smoke less tobacco non-user [facility] Start: 11-15-2023 Alcoholic beverage intake Ex-drinker (finding) [facility] Start: 11-15-2023 End: 05-04-2024 Alcoholic beverage intake [facility] Start: 05-04-2024 End: 05-05-2024 Social connection and isolation panel [facility] Do you belong to any clubs or organizations such as mu-ism groups, unions, fraternal or athletic groups, or school groups? No [facility] How often do you att end meetings of the clubs or organizations you belong to? Patient declined [facility] Are you now , , , , never or living with a partner? Living with partner [facility] How often to you hav e a drink containing alcohol? 2-3 time sa week [facility] How many standard dr inks containing alcohol do you have on a typical day? 1 or 2 [facility] How often do you hav e 6 or more drinks on 1 occasion? Monthly [facility] How hard is it for y ou to pay for the very basics like food, housing, medical care, and heating Not very hard [facility] Do you feel stress - tense, restless, nervous, or anxious, or unable to sleep at night because your mind is troubled all the time - these days [OSQ] Very much [facility] (I/We) worried judith er (my/our) food would run out before (I/we) got money to buy more. Never true [facility] Start: 05-14-2023 Alcohol Comment caffeine: 2-3 cups per day tea [facility] Start: 2001 Sex assigned at Female [facility] Start: 04-26-2023 Gender identity Identifies as female gender (finding) [facility] Start: 04-26-2023 Sexual orientation Bisexual (finding ) [facility] Start: 05-05-2024 End: 06-03-2024 Alcoholic beverage intake Current drinker of alcohol (finding) [facility] History of Present illness Narrative 06-03-2024 Melia Davis MD - 06/03/2024 4:00 PM EST Note Date & Type Note Facility 06-03-2024 History of Presen t illness Narrative Images from the original note were not included. Alexandria Barrett is a 23 y.o. female presents with chief complaint of Follow-up HPI: HPI Anxiety follow up History of Present Illness The patient presents for a follow-up on her medication, wrist pain, sleep issues, and mental health. She reports a positive response to her current low-dose medication, noting an improvement in her condition. She has been making efforts to improve her hygiene and self-care practices, including dietary changes. She acknowledges a lack of patience and minor anger issues but believes that her child and the medication have significantly improved her immediate reactions. She admits to ongoing struggles but is committed to seeking help when needed. She is trying not to get angry with her baby. She finds it harder now that she does not have her around, but it is better for her mentally to not have him around because they used to constantly argue. Her had their daughter the whole last week so she could try to get used to sleeping and being by herself alone and then she got her back on Sunday. She has been doing well since then. She has been giving her daughter a bath by herself and doing all the things that she was scared to do. The only thing she struggles with is waking up in the morning because she struggles to go to sleep at night. She feels better attitude calderon too. She has a serious issue with biting her gums. She is going to the dentist in a week. She has been trying not to bite her gums, but it is just a habit. She hopes the higher dosage helps that too. She always has to use peroxide so it heals fast. She has noticed herself doing that a lot more being by herself. She thinks it is just her concentrating habit. She does that when she is stressed and she does not want anybody else to know that she is stressed. She is also trying to stop vaping and smoking. She stopped drinking ever since she was prescribed the medication. She only drank once and she did not like it. She feels like she can think clearer. Her body is starting to react to her not doing things so often like her face is breaking out really bad. She had to stop doing this before when she got , so she knows she is going to go through a little bit of a dip there, but she is going to see the end of it and she is going to feel better. She is trying to get herself on a normal schedule, not like a night hour schedule because she used to work nights and she thinks her body is just so used to being awake during the night. She is excited to be able to actually sleep. She is trying to sleep when her daughter sleeps, but she goes to sleep so early at 8:30 PM, so she does not want to sleep at 8:30 PM. She has been utilizing a wrist brace, which she reports as being beneficial. She experiences no pain during wrist movement and attempts to wear the brace as frequently as possible, particularly at night. Despite her separation from her partner and the challenges of caring for her child, she manages to wear the brace occasionally during the day. Her niece also provides reminders for her to wear the brace. She does not experience constant pain and was able to perform household tasks such as dishwashing without discomfort. She expresses optimism that continued use of the brace will further alleviate her symptoms. She anticipates potential sleep disturbances due to her new living arrangement with her daughter. She has attempted to manage her sleep issues with melatonin, which has slightly improved her sleep onset time. However, she continues to wake up early, typically around 6:30 AM. She plans to implement a regular sleep schedule as recommended by her mother, who has similar sleep issues. She hopes that an increased dosage of her medication will further improve her sleep quality. She recently consulted with her therapist, who noted an improvement in her condition. She maintains regular bi-weekly therapy sessions via phone calls. SOCIAL HISTORY The patient is trying to stop vaping and smoking. She stopped drinking since starting her medication, except for one instance where she did not enjoy it. FAMILY HISTORY Her mother has sleeping issues. MEDICATIONS Current: melatonin SUBJECTIVE: MEDICATIONS: Current Outpatient Medications Medication Instructions Aviane 0.1-20 MG-MCG tablet TAKE 1 TABLET BY MOUTH ONCE DAILY FOR 28 DAYS escitalopram (LEXAPRO) 5 mg, Oral, Daily ALLERGIES: No Known Allergies SURGICAL HISTORY: History reviewed. No pertinent surgical history. FAMILY HISTORY: Family History Problem Relation Name Age of Onset No Known Problems Father Cancer Maternal Grandmother Theresa Barrett SOCIAL HISTORY: Social History Tobacco Use Smoking status: Never Smokeless tobacco: Never Vaping Use Vaping status: Every Day Substances: Nicotine, THC Devices: Camalize SL Substance Use Topics Alcohol use: Yes Alcohol/week: 3.0 standard drinks of alcohol Types: 3 Glasses of wine per week Comment: caffeine: 2-3 cups per day tea Drug use: Yes Frequency: 6.0 times per week Types: Marijuana Comment: Using thc Depression: Not at risk (05/05/2024) PHQ-2 PHQ-2 Score: 1 REVIEW OF SYMPTOMS: Review of Systems OBJECTIVE: Visit Vitals BP 112/68 (BP Location: Left arm, Patient Position: Sitting, BP Cuff Size: Adult) Pulse 77 Resp 18 Ht 5' 0.5 Wt 131 lb SpO2 99% BMI 25.16 kg/m OB Status Unknown Smoking Status Never BSA 1.59 m Physical Exam Constitutional: Appearance: Normal appearance. She is normal weight. Musculoskeletal: Cervical back: Normal range of motion and neck supple. Skin: General: Skin is warm and dry. Neurological: General: No focal deficit present. Mental Status: She is alert and oriented to person, place, and time. Mental status is at baseline. Psychiatric: Mood and Affect: Mood normal. Behavior: Behavior normal. Thought Content: Thought content normal. Judgment: Judgment normal. ASSESSMENT AND PLAN: Assessment/Plan Problem List Items Addressed This Visit None Visit Diagnoses Anxiety - Primary Relevant Medications escitalopram (Lexapro) 10 MG tablet Assessment & Plan 1. Medication management. She reports that her current low-dose medication is effective. She is advised to double her current dose until the supply is exhausted, after which she will transition to a 10 mg dosage, taking one tablet daily. 2. Wrist pain. She reports significant improvement in her wrist pain with the use of a wrist brace, especially at night. She is encouraged to continue using the wrist brace as much as possible, particularly at night, to aid in recovery. 3. Sleep issues. She has been using melatonin, which provides some benefit but still experiences difficulty falling asleep and waking up early. Increasing the dosage of her current medication may help improve her sleep. 4. Mental health. She reports feeling better mentally and emotionally, attributing this improvement to her medication and lifestyle changes, including reducing alcohol intake and attempting to quit vaping. She is also seeing a therapist every two weeks, which she finds beneficial. She is encouraged to continue these efforts and follow up with her therapist as scheduled. Follow-up The patient will follow up in 3 months. documented in this encounter [facility] History of Present illness Narrative 05-05-2024 Melia Davis MD - 05/05/2024 4:00 PM EST Note Date & Type Note Facility 05-05-2024 History of Presen t illness Narrative Images from the original note were not included. Alexandria Barrett is a 23 y.o. female presents with chief complaint of Annual Exam and Wrist Pain (Patient presents today for left wrist pain for 6-7 months. ) HPI: HPI History of Present Illness The patient presents for evaluation of thumb pain, anxiety, and sleep disturbance. She has been experiencing progressive discomfort in her thumb for the past 6 months, particularly when pressure is applied. The pain is described as similar to a bruise upon touch. She also reports wrist pain when moving her thumb or bearing weight on it. 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 Currently, she experiences pain during certain movements, such as lifting her daughter's legs while changing diapers, but not during routine activities like washing her hair. She is right-hand dominant and reports pain when holding objects with her right hand, although she can manage this. She has found relief from icing her thumb and is seeking reassurance that her condition will not worsen. She is currently unemployed and is considering returning to work soon. She has a habit of cracking her fingers, excluding her thumb due to the associated pain. She has a history of a wrist fracture from fifth grade. Prior to her , she was undergoing therapy, which she found beneficial. However, she experienced severe depression and anxiety following her . While the depressive symptoms have subsided, she continues to struggle with anxiety, which disrupts her sleep. She often stays awake until 3:00 AM to 5:00 AM, fearing that something bad might happen if she falls asleep. Even when she attempts to sleep, it takes her approximately an hour to do so, and she wakes up early with her baby. Despite these sleep disturbances, she does not feel fatigued. She is not . She believes that resolving her sleep issues would alleviate many of her other problems. She has discussed her sleep issues with her therapist, who recommended this consultation. She reports that her boyfriend is supportive and reassures her. She is actively working on her mental health with her therapist and is trying new strategies. She is interested in finding a job and becoming financially independent. She recalls experiencing anxiety and depression in high school, which she attributed to shyness. She was in a long-term relationship for 7 years during high school, which was marred by infidelity, leading to trust issues and self-reflection. She is open to trying melatonin to see if it helps her wake up feeling refreshed. She is also considering medication for her daytime anxiety, as she often feels overwhelmed by racing thoughts and tasks that need to be done. She has been discussing these issues with her therapist, who reassures her that her feelings are normal and provides her with coping strategies. She has been implementing these strategies and finds them helpful. She is also interested in starting yoga and has been walking around [place] twice during the summer, which she finds beneficial. She has tried NyQuil in the past, which allowed her to sleep until her baby woke up between 7:00 AM and 9:00 AM. SOCIAL HISTORY She is currently unemployed. MEDICATIONS Current: Ubrelvy, Imitrex SUBJECTIVE: MEDICATIONS: Current Outpatient Medications Medication Instructions Aviane 0.1-20 MG-MCG tablet TAKE 1 TABLET BY MOUTH ONCE DAILY FOR 28 DAYS ALLERGIES: No Known Allergies SURGICAL HISTORY: History reviewed. No pertinent surgical history. FAMILY HISTORY: Family History Problem Relation Name Age of Onset No Known Problems Father Cancer Maternal Grandmother Theresa Barrett SOCIAL HISTORY: Social History Tobacco Use Smoking status: Never Smokeless tobacco: Never Vaping Use Vaping status: Every Day Substances: Nicotine, THC Devices: RefFidbacksble tank Substance Use Topics Alcohol use: Yes Alcohol/week: 3.0 standard drinks of alcohol Types: 3 Glasses of wine per week Comment: caffeine: 2-3 cups per day tea Drug use: Yes Frequency: 6.0 times per week Types: Marijuana Comment: Using thc Depression: Not at risk (05/05/2024) PHQ-2 PHQ-2 Score: 1 REVIEW OF SYMPTOMS: Review of Systems Respiratory: Negative. Cardiovascular: Negative. OBJECTIVE: Visit Vitals BP 122/76 (BP Location: Right arm, Patient Position: Sitting, BP Cuff Size: Adult) Pulse 89 Resp 18 Ht 5' 0.5 Wt 138 lb 3.2 oz SpO2 100% BMI 26.55 kg/m OB Status Unknown Smoking Status Never BSA 1.64 m Physical Exam Constitutional: Appearance: Normal appearance. She is normal weight. HENT: Head: Normocephalic and atraumatic. Nose: Nose normal. Mouth/Throat: Mouth: Mucous membranes are moist. Eyes: Pupils: Pupils are equal, round, and reactive to light. Cardiovascular: Rate and Rhythm: Normal rate and regular rhythm. Heart sounds: No murmur heard. Pulmonary: Effort: Pulmonary effort is normal. Breath sounds: Normal breath sounds. No wheezing or rhonchi. Musculoskeletal: General: No swelling. Cervical back: Normal range of motion and neck supple. Right lower leg: No edema. Left lower leg: No edema. Skin: General: Skin is warm and dry. Findings: No rash. Neurological: Mental Status: She is alert and oriented to person, place, and time. Sensory: No sensory deficit. Gait: Gait normal. Psychiatric: Mood and Affect: Mood normal. Thought Content: Thought content normal. Judgment: Judgment normal. ASSESSMENT AND PLAN: Assessment/Plan Problem List Items Addressed This Visit Irregular menses - Primary Other Visit Diagnoses Routine general medical examination at a health care facility Anxiety Relevant Medications escitalopram (Lexapro) 5 MG tablet Assessment & Plan 1. De Quervain's tenosynovitis. She was advised to avoid repetitive activities that could exacerbate the condition, such as texting or playing video games with her thumb. She was also instructed to apply ice to the affected area at the end of each day to help reduce inflammation. A splint was provided for her to wear as much as possible to facilitate faster healing. 2. Anxiety. She was counseled on the importance of allowing her child to sleep independently and trusting that the child will communicate any needs. She was also encouraged to engage in physical activities such as yoga for 10 to 20 minutes daily to help manage her anxiety. A prescription for gabapentin was provided, starting with the lowest dose. She was advised not to discontinue the medication if it does not initially seem effective, as the dosage may need to be adjusted. 3. Sleep disturbance. She was advised to try melatonin to help with sleep, as it is a mild and safe option. Follow-up The patient will follow up in 1 month to assess the effectiveness of the medication, or sooner if her condition worsens or changes. documented in this encounter [facility] Evaluation note Note Date & Type Note Facility Evaluation note Diagnosis Irregular menses- Primary Irregular menstrual cycle Routine general medical examination at a health care facility Anxiety Anxiety state, unspecified documented in this encounter [facility] Evaluation note Note Date & Type Note Facility Evaluation note Diagnosis Anxiety- Primary Anxiety state, unspecified documented in this encounter [facility] Summary Purpose Family History No Family History Records Found Advance Directives No Advanced Directives Records Found Additional Source Comments Care Teams (unrecognized sec tion and content) Building Cleaning Supervisor Relationship Specialty Start Date End Date Melia Davis MD [address] [place] [address] PCP - General Family Medicine 09/05/22 Building Cleaning Supervisor Relationship Specialty Start Date End Date Melia Davis MD [address] [place] [address] PCP - General Family Medicine 09/05/22 Building Cleaning Supervisor Relationship Specialty Start Date End Date Melia Davis MD [address] [place] [address] PCP - General Family Medicine 09/05/22 Building Cleaning Supervisor Relationship Specialty Start Date End Date Melia Davis MD [address] [place] [address] PCP - General Family Medicine 09/05/22 Reason for Visit (unrecogniz ed section and content) Reason Comments Annual Exam Wrist Pain Patient presents tod ay for left wrist pain for 6-7 months. Reason Comments Follow-up INFORMATION SOURCE (unrecogn ized section and content) DATE CREATED AUTHOR 06/05/2024 [facility] FOR RECORDS PERTAINING TO PATIENTS WHO ARE [...] BE BASED ON THE PRIMARY CLINICAL RECORDS. [employer] provides no warranty or guarantee of the accuracy or completeness of information in this document.
== END 2024-06-09 21:58 | disposition home or self-care (01) ==
LOC: LAB 21:57
PROVIDERS: PCP Family Medicine; Visit Provider Obstetrics & Gynecology
DX: Z01.419 Encounter for gynecological examination (general) (routine) without abnormal findings (principal)
CPT/HCPCS: 88175